=== PATIENT | female | born 1955 ===

== ENCOUNTER 2017-06-09 14:42 | Emergency (ER) | payer MEDICAID ==
[2017-06-09 14:53] VITALS: BMI 27.9
[2017-06-09] MEDS ORDERED: Lidocaine 5% Patch TD STA (15:18)
--- NOTE | 2017-06-09 15:27 | ED PDOC ---
Arrival/HPI - General Chief Complaint: Back Pain Time Seen by Provider: 06/09/17 14:51 Historian: Patient - History of Present Illness Narrative History of Present Illness (Text): 06/09/17 15:23 A 62 year old female whose past medical history includes anxiety, depression and back pain, presents to the emergency department with a complaint of 2 day duration right/mid back pain. 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 She notes that the pain is worsened with movement and feels like an ache.The patient states that last night her symptoms worsened which prompted her to take Advil resulting in mild relief. The patient denies fevers, chills, headache, dizziness, chest pain, shortness of breath, dyspnea on exertion, cough, abdominal pain, nausea, vomiting, diarrhea, neck pain, urinary/bowel changes, or any other complaint. Time/Duration: Other (2 Days) Symptom Onset: Sudden Symptom Course: Unchanged Activities at Onset: Rest, Light Context: Work Past Medical History - Provider Review Nursing Documentation Reviewed: Yes - Infectious Disease Hx of Infectious Diseases: None - Tetanus Immunization Tetanus Immunization: Unknown - Reproductive Menopause: Yes - Past Medical History Past Medical History: No Previous - Cardiac Hx Cardiac Disorders: No - Pulmonary Hx Respiratory Disorders: No - Neurological Hx Neurological Disorder: No - HEENT Hx HEENT Disorder: No - Renal Hx Renal Disorder: No - Endocrine/Metabolic Hx Endocrine Disorders: No - Hematological/Oncological Hx Blood Disorders: No - Integumentary Hx Dermatological Disorder: No - Musculoskeletal/Rheumatological Hx Musculoskeletal Disorders: No - Gastrointestinal Hx Gastrointestinal Disorders: No - Genitourinary/Gynecological Hx Genitourinary Disorders: No - Psychiatric Hx Anxiety: Yes Hx Depression: Yes Hx Substance Use: No - Past Surgical History Past Surgical History: No Previous - Anesthesia Hx Anesthesia: No - Suicidal Assessment Feels Threatened In Home Enviroment: No Family/Social History - Physician Review Nursing Documentation Reviewed: Yes Family/Social History: No Known Family HX Smoking Status: Never Smoked Hx Alcohol Use: No Hx Substance Use: No Hx Substance Use Treatment: No Allergies/Home Meds Allergies/Adverse Reactions: Allergies No Known Allergies Allergy (Verified 12/04/14 00:49) Home Medications: Home Meds Medication Instructions Recorded Confirmed PARoxetine [Paxil] 30 mg PO DAILY 02/05/14 06/09/17 Review of Systems - Physician Review All systems were reviewed & negative as marked: Yes - Review of Systems Constitutional: absent: Fevers, Night Sweats Respiratory: absent: SOB, Cough Cardiovascular: absent: Chest Pain, GRAVES Gastrointestinal: absent: Abdominal Pain, Diarrhea, Nausea, Vomiting Musculoskeletal: Back Pain. absent: Neck Pain Neurological: absent: Headache, Dizziness Physical Exam Vital Signs Reviewed: Yes Vital Signs Pulse Resp BP Pulse Ox 06/09/17 14:42 90 16 142/101 H 100 Temperature: Afebrile Blood Pressure: Hypertensive Pulse: Regular Respiratory Rate: Normal Appearance: Positive for: Well-Appearing, Non-Toxic, Comfortable Pain Distress: None Mental Status: Positive for: Alert and Oriented X 3 - Systems Exam Head: Present: Atraumatic, Normocephalic Pupils: Present: PERRL Extroacular Muscles: Present: EOMI Conjunctiva: Present: Normal Mouth: Present: Moist Mucous Membranes Neck: Present: Normal Range of Motion Respiratory/Chest: Present: Clear to Auscultation, Good Air Exchange. No: Respiratory Distress, Accessory Muscle Use Cardiovascular: Present: Regular Rate and Rhythm, Normal S1, S2. No: Murmurs Abdomen: Present: Normal Bowel Sounds. No: Tenderness, Distention, Peritoneal Signs Back: Present: Paraspinal Tenderness (Paraspinal tenderness the right area of the T6-T8 worsened with movement.). No: Midline Tenderness Upper Extremity: Present: Normal Inspection. No: Cyanosis, Edema Lower Extremity: Present: Normal Inspection. No: Edema Neurological: Present: GCS=15, CN II-XII Intact, Speech Normal Skin: Present: Warm, Dry, Normal Color. No: Rashes Psychiatric: Present: Alert, Oriented x 3, Normal Insight, Normal Concentration Medical Decision Making ED Course and Treatment: 06/09/17 15:28 Impression: A 62 year old female presents to the emergency department with 2 day duration of right/ mid back pain. Plan: -- Tylenol, Valium, Toradol, Lidoderm. -- Reassess and disposition Prior Visits: Notes and results from previous visits were reviewed. Patient was last seen in the emergency department on 03/31/2016. The patient was seen in the emergency department for a subjective syncopal episode after taking Benadryl. The patient was discharged home. Progress Notes: Patient feels much better. She is able to sit up and stand up without distress. Denies numbness or weakness. No incontinence. She has used Voltaren before and that really helps her too. I advised her to take it instead of Motrin. She will also take flexeril and lidocaine patches as needed. Advised her to make sure to follow up with her primary care doctor and return to the ED if symptoms worsen or any other concern. - Medication Orders Current Medication Orders: Discontinued Medications Acetaminophen (Tylenol 325mg Tab) 975 mg PO STAT STA Stop: 06/09/17 15:19 Last Admin: 06/09/17 15:34 Dose: 975 mg MAR Pain/Vitals Document 06/09/17 15:34 SRE (Rec: 06/09/17 15:34 SRE [id number]) Pain Reassessment Is This A Pain ReAssessment? Yes Sleep Is patient sleeping during reassessment? No Presence of Pain Presence of Pain Yes Pain Scale Used Pain Scale Used Numeric Location Pain Location Body Site Back Description Intermittent Acute Diazepam (Valium) 5 mg PO ONCE ONE PRN Reason: Protocol Stop: 06/09/17 15:10 Last Admin: 06/09/17 15:34 Dose: 5 mg Ketorolac Tromethamine (Toradol) 60 mg IM STAT STA Stop: 06/09/17 15:10 Last Admin: 06/09/17 15:33 Dose: 60 mg MAR Pain Assessment Document 06/09/17 15:33 SRE (Rec: 06/09/17 15:34 SRE [id number]) Pain Reassessment Is this a pain reassessment? Yes Sleep Is patient sleeping during reassessment? No Presence of Pain Presence of Pain Yes Pain Scale Used Pain Scale Used Numeric Location Pain Location Body Site Back Description Description Sharp IM Administration Charges Document 06/09/17 15:33 SRE (Rec: 06/09/17 15:34 SRE [id number]) Charges for Administration # of IM Administrations 1 Lidocaine (Lidoderm) 1 ea TD STAT STA Stop: 06/09/17 15:19 Last Admin: 06/09/17 15:33 Dose: 1 ea MAR Transdermal Patch Site Document 06/09/17 15:33 SRE (Rec: 06/09/17 15:33 SRE [id number]) Transdermal Patch Site Transdermal Patch Site Right Lower Back - Scribe Statement The provider has reviewed the documentation as recorded by the Leoncioibsahil Red Provider Scribe Attestation: All medical record entries made by the Scribe were at my direction and personally dictated by me. I have reviewed the chart and agree that the record accurately reflects my personal performance of the history, physical exam, medical decision making, and the department course for this patient. I have also personally directed, reviewed, and agree with the discharge instructions and disposition. Disposition/Present on Arrival - Present on Arrival Any Indicators Present on Arrival: No History of DVT/PE: No History of Uncontrolled Diabetes: No Urinary Catheter: No History of Decub. Ulcer: No History Surgical Site Infection Following: None - Disposition Have Diagnosis and Disposition been Completed?: Yes Diagnosis: Back muscle spasm Disposition: HOME/ ROUTINE Disposition Time: 16:41 Patient Plan: Discharge Patient Problems: Current Active Problems Problem Status Onset Back muscle spasm Acute Condition: IMPROVED Discharge Instructions (ExitCare): Muscle Spasm (ED) Additional Instructions: [place], thank you for letting us take care of you today. Your provider was Dr. Bray. You were treated for Back Spasm. The emergency medical care you received today was directed at your acute symptoms. If you were prescribed any medication, please fill it and take as directed. It may take several days for your symptoms to resolve. Return to the Emergency Department if your symptoms worsen, do not improve, or if you have any other problems. Please contact your doctor or call one of the physicians/clinics you have been referred to that are listed on the Patient Visit Information form that is included in your discharge packet. Bring any paperwork you were given at discharge with you along with any medications you are taking to your follow up visit. Our treatment cannot replace ongoing medical care by a primary care provider (PCP) outside of the emergency department. Thank you for allowing the [facility] team to be part of your care today. If you had an X-Ray or CT scan: A Radiologist will review the ED reading if any change in treatment is needed we will contact you. If you had a blood, urine, or wound culture: It will take several days for the results, if any change in treatment is needed we will contact you. If you had an STI test: It will take 48 hours for the results. Please call after 1 week if you have not heard back. Prescriptions: Cyclobenzaprine [Cyclobenzaprine HCl] 10 mg PO Q8 #20 tab Diclofenac Sodium [Voltaren] 2 gm TP Q6H PRN #1 gel..gram. PRN Reason: Muscle Spasm Lidocaine 5% [Lidoderm] 1 ea TD DAILY PRN #4 patch PRN Reason: Pain, Moderate (4-7) Referrals: Shan Walker MD [Primary Care Provider] - Follow up with primary Forms: [facility] ([place]), WORK NOTE
[2017-06-09 16:43] VITALS: TEMP 98.2
[2017-06-09 16:44] VITALS: BP 112/73; PULSE 74; RESP 18; O2SAT 97
== END 2017-06-09 16:46 | disposition home or self-care (01) ==
LOC: ED 14:42
DX: M62.830 Muscle spasm of back (principal)
CPT/HCPCS: 96372; 99283; J1885